=== PATIENT | male | born 1950 | race Caucasian/White ===

== ENCOUNTER 2016-06-24 07:05 | Day surgery (SDC) | payer OTHER ==
[~2016-06-24] VITALS: Ht 170.2 cm; Wt 122.0 kg
[2016-06-24] VITALS (13 sets, daily range): BP systolic 112–157; BP diastolic 7–75; PULSE 68–82; RESP 16–20; O2SAT 93–98
[~2016-06-24 07:05] MED LIST: ASPI-973 PO; CHOL500050 PO; DOXY100C2 PO; Dexamethasone 10 mg/mL Inj IV ONE; Dexamethasone Inj 20 MG in Dextrose 5%-Pha MIX 50 ML IV ONE; FURO-129 PO; LIP40 PO; Lactated Ringer's 1,000 ML IV ONE; METO25TA99 PO
[2016-06-24] MEDS ORDERED: Dexamethasone 4 mg/mL Inj ONE (07:06)
[2016-06-24] MEDS ORDERED: Ondansetron 2 mg/mL 2 mL Inj ONE (07:06)
[2016-06-24] MEDS ORDERED: MetoCLOpramide 5 mg/mL 2 mL Inj ONE (07:06)
[2016-06-24] MEDS ORDERED: Succinylcholine Chloride 20 mg/mL 5 mL Inj ONE (07:06)
[2016-06-24] MEDS ORDERED: Propofol 10,000 mCg/mL 20 mL Inj ONE (07:06)
--- NOTE | 2016-06-24 08:10 | PCM.HPANE ---
Patient Data Surgeon Admitting Provider: Attending Provider:Isidoro Guerra MD Primary Care Physician:Brianna Bynum MD Other Provider:[facility] Anesthesia Reason for Visit Parotid Gland Nodule PAROTID GLAND NODULE Ht/WT & BMI Height (Feet): 5 Height (Inches): 7 Weight (Kilograms): 122 Body Mass Index 42.00 Allergies Coded Allergies: No Known Allergies (Verified , 01/16/09) Past Anesthesia History Anesthesia History: Denies:: Anesthesia Reactions, Fam Anesthesia Reaction Diabetes History Hx Diabetes?: No MRSA MRSA: No Medications Blood Thinner: Aspirin Hypertension Medication: Yes Home Meds Incl Beta Corby: Yes (metoprolol) Date Beta Corby Taken: Jun 23, 2016 Time Beta Corby Taken: 1999 Reported Medications Cholecalciferol (Vitamin D3) (Vitamin D3)50,000 Unit Jctdmqt46,000 Unit PO WEEKLY 06/21/16 Aspirin 81 Mg Vecubo62 Mg PO DAILY Ref 0 06/21/16 Doxycycline Hyclate 100 Mg Unfwamt355 Mg PO DAILY 06/21/16 Atorvastatin (Lipitor)40 Mg Vjyqdl73 Mg PO DAILY Ref 0 06/21/16 Metoprolol Succinate ER 25 Mg Tab.er.24h25 Mg PO DAILY Ref 0 06/21/16 Discontinued Reported Medications Furosemide (Lasix)20 Mg Mmrdzq69 Mg PO DAILY PRN edema 30 Days Ref 0 06/21/16 [benadryl] No Conflict Check PO PRN Ref 0 01/17/09 Nitroglycerin-Expunged Drug, Do Not Renew! (Nitroglycerin SL-Expunged Drug, Do Not Renew!)0.4 Mg Tab.subl0.4 Mg SL PRN Ref [address] one tablet under your tongue if needed for chest pain/pressure. If no relief in 15min. after 3 tablets 5 min. apart Call 911 01/17/09 Metoprolol Tart-Expunged Drug, Do Not Renew! 25 Mg Tab25 Mg PO BID Ref 0 01/17/09 Clopidogrel-Expunged Drug, Do Not Renew! (Plavix-Expunged Drug, Do Not Renew!) 75 Mg Gcxgeb96 Mg PO DAILY Ref 0 01/17/09 Aspirin-Expunged Drug, Do Not Renew! 325 Mg Qlupzt199 Mg PO DAILY Ref 0 01/17/09 Lovastatin-Expunged Drug, Do Not Renew! 40 Mg Xajxqw84 Mg PO HS #2 Ref 0 2 tablets 01/16/09 Omeprazole-Expunged Drug, Do Not Renew! 20 Mg Tablet.dr20 Mg PO DAILY Ref 0 01/16/09 History History of ENT Problems?: Yes HEENT History: Positive for:: Sinus Problem (deviated septum surgery/seasonal allergies) Denies:: Cataracts Dysphagia Glaucoma Hearing Problem Hx of Heart Problems?: Yes Cardiovascular History: Positive for:: Hypertension Denies:: Cardiac Surgery (cardiac stent x 4 ) Chest Pain Congestive Heart Failure Edema Heart Murmur Irregular Heartbeat Pacemaker Thrombophlebitis Hx of Respiratory Problem?: Yes Respiratory History: Positive for:: Cough (current cough) Use of C-PAP Machine Denies:: Asthma COPD Chest Surgery Dyspnea Emphysema Hemoptysis Oxygen Administration Pneumonia Tuberculosis Hx Neurologic Problems?: No Neurological History: Denies:: CVA Headaches Multiple Sclerosis Parkinson's Disease Seizures TIA Hx of GI Problems?: No Gastrointestinal History: Denies:: Cirrhosis Diverticulitis Gall Bladder Disease Gastroesphageal Reflux Gastrointestinal Bleeding Heartburn Hepatitis Hiatal Hernia Liver Disease Rectal Bleeding Hx of Problems?: No Genitourinary History: Denies:: Kidney Stones Urinary Tract Infection Male Hx: Denies:: Prostate Problems Scrotal Mass Testicular Surgery Skin History: Denies:: History Skin Disorders? Pressure Ulcers Hx Musculoskeletal Problems?: No Musculoskeletal History: Denies:: Degenerative Joint Fibromyalgia Joint Replacement Musculoskeletal Trauma (occ left knee ) Myasthenia Gravis Osteoarthritis Rheumatoid Arthritis Hx of Psycho/Social Problems?: No Psycho Social History: Denies:: Anxiety Hx Depression Hx Surgeries?: Yes (umbilical hernia repair x 2, deviated septum) Hx Any Other Health Problems?: Yes Other History: Positive for:: Hospitalization Denies:: Cancer Endocrine Disease Thyroid Disease History Blood Transfusions: Positive for:: Accept Blood Products? Denies:: Blood Transfuse Reaction Blood Transfusions Hx Diabetes: No Hx Alcohol Use: NoHx Substance Use: NoHave You Smoked inLast 12 mo: No Stop/Bang Treated for Sleep Apnea?: Yes Do You Have a CPAP Machine?: Yes P-Blood Pressure: treated: Yes B- Body Mass Index > 35 kg/m2: Yes A- Age over 50: Yes N- Neck Large Circumference: Yes G- Gender Male: Yes EDENILSON Risk Assessment: High Risk, =/>3 Yes Risk Assessment Category Category 1A: Patient has history of documented sleep apnea, and HAS NOT received any narcotic, sedative or anesthesia administration during this stay. Category 1B: Patient has history of documented sleep apnea, and HAS received any narcotic , sedative or anesthesia administration during this stay Category 2: Patient has SUSPECTED Obstructive Sleep Apnea, and HAS received any narcotic , sedative or anesthesia administration during this stay. Category 3: Patient has SUSPECTED Obstructive Sleep Apnea and HAS NOT received narcotic, sedative or anesthesia administration during this stay. Category 4: Outpatient in Procedural Areas with known sleep apnea or who screen positive for High Risk via the STOP/BANG questionnaire. Exam Exam Vital Signs Vital Signs Date Time Temp Pulse Resp B/P Pulse Ox O2 Delivery O2 Flow Rate FiO2 06/24/16 07:25 36.3 68 16 125/75 95 Room Air General Appearance: Oriented X3 HEENT/AIRWAY: MP 2 Lungs: Normal Air Movement Heart: Regular Rate/Rhythm Meds/Labs/Diagnostics Admission Meds Current Medications Lactated Ringer's (Lr) 1,000 ml @ 120 mls/hr Q8H20M ONCE IV Last administered on 06/24/16t 07:16; Start 06/24/16 at 05:00; Stop 06/24/16 at 13:19 Plan Impression Patient chart reviewed, patient interviewed and anesthestic plan with risks, benefits, and alternatives discussed, and informed consent obtained. NPO Status: 06/23/16 ASA Physical Status: ASA3 Severe Disease Anesthetic Plan: GA Bene/Risks/Altern/Consents: Yes HP Complete Prior to Induction: Yes William Gardner MD Jun 24, 2016 08:09
[2016-06-24] MEDS ORDERED: Lactated Ringer's 500 ML IV PRN (08:49)
[2016-06-24] MEDS ORDERED: Lactated Ringer's 1,000 ML IV SCH (08:49)
[2016-06-24] MEDS ORDERED: EPHEDrine Sulfate 50 mg/mL Inj IVPUSH PRN (08:50)
[2016-06-24] MEDS ORDERED: Dexamethasone 4 mg/mL Inj IVPUSH PRN (08:50)
[2016-06-24] MEDS ORDERED: fentaNYL-PF 50 mCg/mL 2 mL Inj IVPUSH PRN (08:50)
[2016-06-24] MEDS ORDERED: Phenylephrine 10,000 mCg/mL Inj IVPUSH PRN (08:50)
[2016-06-24] MEDS ORDERED: HYDROmorphone 1 mg/mL Inj IVPUSH PRN (08:50)
[2016-06-24] MEDS ORDERED: Ondansetron 2 mg/mL 2 mL Inj IVPUSH PRN (08:50)
[2016-06-24] MEDS ORDERED: MetoCLOpramide 5 mg/mL 2 mL Inj IVPUSH PRN (08:50)
[2016-06-24] MEDS ORDERED: Bacitracin Ointment Packet TOPICAL ONE (10:15)
--- NOTE | 2016-06-24 11:14 | PCM.ANEP1 ---
Post Anesthesia Phase 1 PACU Phase 1 Assessment Vital Signs Vital Signs Date Time Temp Pulse Resp B/P Pulse Ox O2 Delivery O2 Flow Rate FiO2 06/24/16 11:00 79 18 134/66 93 Nasal Cannula 2 06/24/16 10:50 82 18 157/73 94 Nasal Cannula 2 06/24/16 10:45 77 19 112/70 97 Simple Mask 8 06/24/16 10:40 80 20 120/63 97 Simple Mask 8 06/24/16 10:35 79 19 123/61 98 Simple Mask 8 06/24/16 10:34 36.6 81 18 129/67 98 Simple Mask 8 06/24/16 07:25 36.3 68 16 125/75 95 Room Air Anesthetic Administered: GA Level of Alertness: Awake, talking Pain: No Nausea or Vomiting: No Oxygen Delivery: Room Air Lungs: Normal Air Movement William Gardner MD Jun 24, 2016 11:14
--- NOTE | 2016-06-24 11:15 | PCM.ANEP2 ---
Post Anesthesia Evaluation ASA/CMS Post Anesthesia VS in Patient's Normal Range?: Yes Resp Stable; Airway Patent?: Yes CV Function & Hydration Stable: Yes Mental Status Recovered?: Yes Pain control Satisfactory?: Yes N/V Control Satisfactory?: Yes William Gardner MD Jun 24, 2016 11:14
--- NOTE | 2016-06-24 11:33 | OP ---
[address] [address] OPERATIVE REPORT PATIENT: GINGER DOSHI : 1950 MR#: [id number] ADMIT: 06/24/2016 JOB ID: [id number] DATE OF SURGERY: SURGEON: Isidoro Guerra MD /ramesh Lawrence PREOPERATIVE DIAGNOSIS(ES): 1. Left parotid mass. 2. Chronic and recurrent acute sialoadenitis. POSTOPERATIVE DIAGNOSIS(ES): 1. Left parotid mass. 2. Chronic and recurrent acute sialoadenitis. PROCEDURE: Left superficial parotidectomy with facial nerve monitoring and dissection preservation. INDICATION: A 65-year-old gentleman with recurrent painful swelling of the left parotid. CT scan showed what appeared to be bilobed mass in the superficial lobe of the parotid gland. PROCEDURE AND FINDINGS: The patient was taken to the operative room, placed in supine position on the operating table. General endotracheal anesthesia induced. Head is turned to the right. The left face prepped and draped in sterile fashion. Facial nerve monitor leads were applied. The planned preauricular and upper neck incision had been injected prior to prep with 2% lidocaine 1:100,000 epinephrine. With a 15 blade, an incision was made beginning from the pretracheal area around the ear lobule and curving around the angle of the mandible. The mass flap was elevated and 3-0 silk suture retraction sutures were placed. The dissection continues along the anterior margin of the sternocleidomastoid up into the preauricular area. The greater auricular nerve was identified and preserved. Dissection continues down the anterior portion of the external canal until the main trunk of the facial nerve was identified. Dissection then follows the nerve to the pes anserinus. The superficial portion of the gland is dissected off of the nerve and reflected anteriorly and inferiorly. Towards the anterior portion of the dissection, a markedly dilated parotid duct is encountered. This was dissected anteriorly as far as is feasible. It is then clamped, divided between clamps and ligated with 3-0 silk. In this fashion, the superficial lobe of the gland was removed with the palpable abnormality near the tail. Hemostasis was obtained. The deep space was obliterated, rotating the fascial tissues over the nerve with interrupted buried 4-0 chromic. The subcutaneous layers was closed with interrupted buried 4-0 chromic subcuticular with interrupted buried 4-0 chromic skin with running 6-0 nylon. Due to the patient's tape allergy, a standard mastoid type dressing is applied. The patient is awake and extubated in the operative room, returned to the recovery room in good condition. Prior to wound closure, the divisions of the facial nerve were simulated. All are noted to be intact. PATHOLOGY SPECIMEN: The superficial lobe was submitted. DRAINS: None. COMPLICATIONS: None. MTDD
[2016-06-24] MEDS ORDERED: HYDROcodone-APAP 5-325 mg Tablet PO ONE (12:05)
--- NOTE | 2016-06-26 10:05 | PATH ---
SURGICAL PATHOLOGY Attending Physician:Isidoro Guerra M.D. CASE STATUS: Signed Out PATIENT NAME: GINGER DOSHI PID: [id number] : 1950 DATE COLLECTED:06/24/2016 15:45 SPECIMEN: Parotid Gland CLINICAL HISTORY: A: LEFT PAROTID GLAND FINAL DIAGNOSIS: 1.LEFT PAROTID GLAND RESECTION SPECIMEN: BENIGN SIMPLE DUCT CYST (1.8 X 1.2 X 0.8 CM), NEGATIVE FOR ATYPIA AND MALIGNANCY. ICD10 CODE K11.8 GROSS DESCRIPTION: The specimen is received in formalin, labeled with the patient's name, sublabeled as left parotid gland and consists of a hauser-yellow rubbery salivary gland (7.5 g, 4.5 x 4.1 x 1.8 cm). The parenchyma is hauser-yellow and lobular containing an irregular firm cystic area (1.8 x 1.2 x 0.8 cm) located 0.9 cm from the resection margin. The remaining tissue is unremarkable. Ink code: black-resection margin. Section code: (A-D) salivary gland, serial sections, vendor representatives. 06/25/16 JM MICRO DESCRIPTION: See diagnosis. ICD-9 CODES: CPT CODES: 1: 71202 Electronically Signed Out Meño Spivey MD [facility] [address], [place] [address] Technical component performed at [facility], [facility] [address], [place], [address]
== END 2016-06-24 23:59 | disposition home or self-care (01) ==
LOC: SAS 07:05
PROVIDERS: ATTEND Otolaryngology Facial Plastic Surgery
DX: D11.0 Benign neoplasm of parotid gland (principal); K11.20 Sialoadenitis, unspecified; I10 Essential (primary) hypertension; G47.33 Obstructive sleep apnea (adult) (pediatric); E78.5 Hyperlipidemia, unspecified; I25.10 Atherosclerotic heart disease of native coronary artery without angina pectoris; E66.01 Morbid (severe) obesity due to excess calories; Z68.41 Body mass index [BMI] 40.0-44.9, adult; Z95.5 Presence of coronary angioplasty implant and graft; Z79.82 Long term (current) use of aspirin
CPT/HCPCS: 42415; J0330; J1100; J2405; J2765; J7120